=== PATIENT | female | born 1995 | race Caucasian/White ===

== ENCOUNTER 2017-11-19 12:06 | Emergency (ER) | payer MEDICAID, SELFPAY ==
[2017-11-19 12:07] VITALS: BP 130/91; PULSE 99; RESP 16; TEMP 36.8; O2SAT 100; BMI 29.9
--- NOTE | 2017-11-19 12:26 | VDUE_ITS ---
Reason For Study: RUE pain/swelling Right Proximal Right jugular vein is spontaneous, widely patent, phasic, with no intraluminal echogenicity noted. Right subclavian vein is spontaneous, widely patent, phasic, with no intraluminal echogenicity noted. Right Lower Arm Right radial vein is compressible. Right ulnar vein is compressible. Right Arm Right axillary vein is spontaneous, patent, phasic, competent, compressible and demonstrates augmentation. Right brachial vein is compressible. Right cephalic vein is compressible. Right basilic vein is compressible. Antecubital Vein is dilated and non- compressible. < Interpretation Summary Deep veins of the right upper extremity are patent and compressible segmentally. There is no evidence of deep vein thrombosis. Acute superficial thrombophlebitis is noted in the right antecubital vein. The right basilic vein and cephalic vein are patent and compressible. Ordering Physician: Celso Nelson Performed By: Kathrine Baker RVT
[2017-11-19 12:54] LABS: Absolute Lymphocyte Count 1.86 X10^3/ul (0.83-4.51); Basophil# 0.01 X10^3/uL; Basophil% 0.1 % (0-1); Eosinophil# 0.12 X10^3/uL; Eosinophils% 1.3 % (0-5); Hemoglobin 13.3 g/dl (12.0-15.0); Lymphocyte # 1.86 X10^3/ul (4.0); Lymphocyte % 20.6 % (19-41); Mean Corp Hgb Conc 31.7 g/gl (32-36); Mean Corpuscular Hgb 29.8 pg (27.0-32.0); Mean Corpuscular Volume 94.2 fL (81-99); Mean Platelet Vol. 9.6 fl (6.2-12.0); Monocyte# 1.03 X10^3/uL; Monocyte% 11.4 % (0-10); Neutrophil # 5.98 X10^3/uL (2.7-7.7); Neutrophil % 66.5 % (47-70); Platelet Count 269 K/mm3 (150-450); RBC Distribution Width CV 15.1 % (11.6-14.6); Red Blood Count 4.46 M/mm3 (4.2-5.4)
[2017-11-19 12:55] LABS: POSITIVE COUNT NO; POSITIVE DIFFERENTIAL NO; POSITIVE MORPHOLOGY NO
[2017-11-19 13:08] LABS: Anion Gap 8 (5-15); BUN 10 mg/dL (7-18); Calcium,Total 8.7 mg/dL (8.5-10.1); Chloride 103 mmol/L (98-107); Creatinine, Serum 0.67 mg/dL (0.55-1.02); EST Glomerular Filtration Rate 118 mL/min (>60); Est Glom Filt Rate - Afr Amer 143 mL/min (>60); Estimated Creatinine Clearance 119.52 ml/min; Glucose 82 mg/dL (74-106); Potassium 3.3 mmol/L (3.5-5.1); Sodium Level 139 mmol/L (136-145)
[2017-11-19 13:15] LABS: Pregnancy, Serum, hCG Quali. NEGATIVE Negative (0-9 Nonpreg)
[2017-11-19] MEDS: Ondansetron 4 MG/2 ML Vial IV (13:25)
[2017-11-19] MEDS: 0.9% Normal Saline 1,000 ML 1000 ML IV (13:26)
[2017-11-19] MEDS: Ketorolac 30 MG/ML Syringe IV (13:27)
[2017-11-19 13:35] LABS: Lactic Acid 0.9 mmol/L (0.4-2.0)
[2017-11-19] MEDS: DiphenhydrAMINE 50 MG/ML Syringe IV (14:47)
--- NOTE | 2017-11-19 14:57 | ED.VISSUMM ---
- ER Visit Summary Date of Service: 11/19/17 Chief Complaint: Right forearm pain History of Present Illness: The patient is a 22 F with no primary care physician. Patient reports that she uses methamphetamine IV 2-3 times a day. States she has not used for the past week. She reports she has pain and swelling in her right antecubital fossa and right form that began 2 days ago. Is a sharp, throbbing pain is 10 out of 10 at worst and 7 out of 10 currently. Is worsened by movement or lifting. Is relieved by Excedrin. She also complains of subjective fever and chills. Physical Examination: Vitals: Stable. Afebrile. General: Well-nourished and well-developed. Head: Normocephalic atraumatic. Neck: Supple, no lymphadenopathy. No JVD. Nontender. Cardiovascular: Regular rate and rhythm. No murmurs. Respiratory: No respiratory distress. Clear to auscultation bilaterally. Abdominal: Soft, nontender, nondistended, normal bowel sounds. No guarding, rebound, or peritoneal signs. Back: Nontender. Extremities: Palpable vein in the right antecubital fossa. There is minimal erythema distal to this. There is no fluctuance or induration to suggest an abscess. She is neurovascular intact distal to this. Skin: Normal color, no rash. Neurologic: Alert and oriented ?3. Cranial nerves II through XII are intact. Normal strength and sensation. Psych: Normal affect. Test Results: Right upper extremity Doppler shows her to have clot isolated to the right antecubital vein. This is not proximal to this. This is not distal to this. There is no abscess. CBC is marked for monocytes of 11. Chem-7 is marked potassium 3.3. test is negative. Lactic acid is 0.9. Emergency Department Course and Treatment: Patient had an IV placed. She was given vancomycin, Toradol, and morphine IV. He is resting comfortably. Treatment Plan: This is a superficial thrombophlebitis. However, given the way that she got this I suspect that there is going to be some bacterial component of this. She will be discharged on doxycycline and naproxen. She is instructed to use warm compresses to the area. [facility] 2 [facility] for another exam. Return to the emergency department for any worsening symptoms. Disposition: To home in improved and stable condition. Impression: 1. Right antecubital vein thrombophlebitis. 2. IV drug abuse. This note was generated with [employer] dictation software. It may contain incorrect words, spelling, and punctuation that were not noted in review of the chart prior to signing ED Disposition - Plan for ED Patient: Disposition: Home or Assisted Living Chief Complaint: Cellulitis Instructions: ED Phlebitis Superficial Prescriptions: Ondansetron [Zofran Odt] 4 mg PO Q8H PRN PRN #10 tablet PRN Reason: Nausea Naproxen [Naprosyn] 500 mg PO BID PRN #20 tablet Doxycycline Monohydrate 100 mg PO BID #20 capsule Referrals: Katie Tamayo [NON-STAFF] - 5-7 Days
[2017-11-19 15:17] VITALS: BP 127/84; PULSE 75; RESP 16; TEMP 37.2; O2SAT 100
== END 2017-11-19 15:19 | disposition home or self-care (01) ==
PROVIDERS: Emergency Provider Emergency Medicine
DX: I82.811 Embolism and thrombosis of superficial veins of right lower extremity (principal); F17.200 Nicotine dependence, unspecified, uncomplicated; Z86.14 Personal history of Methicillin resistant Staphylococcus aureus infection; F15.20 Other stimulant dependence, uncomplicated
CPT/HCPCS: 80048; 83605; 84703; 85025; 87040; 93971; 96365; 96375; 99283; J7030; J7050; A4216; J2405

== ENCOUNTER 2017-12-29 02:20 | Emergency (ER) | payer SELFPAY ==
[2017-12-29 02:22] VITALS: BP 124/94; PULSE 82; RESP 17; TEMP 36.9; O2SAT 99; BMI 30.1
--- NOTE | 2017-12-29 02:36 | ED.DCSUM_ITS ---
- ER Visit Summary Date of Service: 12/29/17 Chief Complaint: [] Complaining of skin abscesses ?2 History of Present Illness: The patient is a 22 F with skin abscess ?2. The one in her right forearm started 7 days ago after using methamphetamines. She has a history of staph infections. It was opened and drained [place] and she was given Bactrim antibiotics for 5 days. It is getting much better. Is no longer draining. Her right foot developed some redness 5 days ago. It is very faint and sore. She is using Tylenol. Physical Examination: Vital signs reviewed General: Well-nourished well-developed Head: Normocephalic atraumatic Eyes: Pupils equal round and reactive to light extraocular movements intact ENT: TMs clear no hemotympanum no trauma Neck: Nontender full range of motion Cardiovascular: Regular rate rhythm no murmurs normal S1-S2 Respiratory: No distress clear to auscultation bilaterally chest nontender Abdomen: Soft nontender nondistended normal bowel sounds no masses Back: Nontender no CVA tenderness Extremities: Forearm with an old abscess area that is slightly indurated measuring 2 x 2 centimeters. Centrally there is an old Philip spot without drainage. L foot shows a very faint area of erythema on her distal foot just proximal to the second and third toes. It is small not warm and barely red. Neuro alert oriented cranial nerves II through XII intact normal strength sensation reflexes Test Results: [] Emergency Department Course and Treatment: Likely has a mild cellulitis to her Lfoot and her I&D abscess site appears like it is healing. She will be given a short course of Bactrim for the next 7 days as 5 days likely not long enough. Given 1 [place]. Treatment Plan: [] Disposition: [] Impression: [] Healing boil forearm Cellulitis l foot This note was generated with Bebest[employer] dictation software. It may contain incorrect words, spelling, and punctuation that were not noted in review of the chart prior to signing ED Disposition - Plan for ED Patient: Chief Complaint: Abscess Referrals: Care Physician,No Primary [Primary Care Provider] -
--- NOTE | 2017-12-29 02:36 | ED.DEP ---
ED Disposition - Plan for ED Patient: Disposition: Home or Assisted Living Chief Complaint: Abscess Instructions: ED Infec Skin Cellulitis, ED Staph Infec Abx Tx Only Prescriptions: Smz/Tmp Ds [Bactrim Ds] 1 tab PO BID #14 tab Ibuprofen 800 mg PO TID #25 tab Referrals: Care Physician,No Primary [Primary Care Provider] - Katie Tamayo [NON-STAFF] -
[2017-12-29] MEDS: Smz/Tmp Ds Tablet 1 TABLET PO (02:45)
[2017-12-29] MEDS: HYDROcodone Bitartrate/Apap 5/325 Tablet PO (02:45)
[2017-12-29 02:46] VITALS: BP 141/84; PULSE 79; RESP 16; O2SAT 100
== END 2017-12-29 02:46 | disposition home or self-care (01) ==
PROVIDERS: Emergency Provider Emergency Medicine
DX: L02.423 Furuncle of right upper limb (principal); L03.116 Cellulitis of left lower limb; Z86.14 Personal history of Methicillin resistant Staphylococcus aureus infection; F15.90 Other stimulant use, unspecified, uncomplicated
CPT/HCPCS: 99285

== ENCOUNTER 2018-02-07 08:08 | Emergency (ER) | payer MEDICAID, SELFPAY ==
[2018-02-07 08:09] VITALS: BP 155/104; PULSE 110; RESP 20; TEMP 36.4; O2SAT 99; BMI 28.3
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
[2018-02-07] MEDS: Ketorolac 30 MG/ML Syringe IV (08:43)
[2018-02-07 08:49] LABS: Absolute Lymphocyte Count 1.62 X10^3/ul (0.83-4.51); Absolute Neutrophil Count 5.5 X10^3/uL (2.0-7.7); Basophil# 0.03 X10^3/uL; Basophil% 0.4 % (0-1); Eosinophil# 0.05 X10^3/uL; Eosinophils% 0.6 % (0-5); Hematocrit 41.8 % (37-47); Hemoglobin 14.2 g/dl (12.0-15.0); Lymphocyte # 1.62 X10^3/ul (4.0); Lymphocyte % 20.3 % (19-41); Mean Corpuscular Hgb 30.9 pg (27.0-32.0); Mean Corpuscular Volume 90.9 fL (81-99); Mean Platelet Vol. 8.9 fl (6.2-12.0); Monocyte# 0.77 X10^3/uL; Monocyte% 9.7 % (0-10); Neutrophil # 5.49 X10^3/uL (2.7-7.7); Neutrophil % 68.9 % (47-70); Platelet Count 331 K/mm3 (150-450); RBC Distribution Width CV 14.6 % (11.6-14.6); RBC Distribution Width SD 47.7 fl (35.1-43.9)
[2018-02-07 08:52] LABS: POSITIVE COUNT NO; POSITIVE DIFFERENTIAL NO; POSITIVE MORPHOLOGY NO
[2018-02-07 08:57] LABS: Anion Gap 8 (5-15); BUN 15 mg/dL (7-18); BUN/Creat Ratio 20.9 RATIO (10-20); Calcium,Total 9.2 mg/dL (8.5-10.1); Chloride 107 mmol/L (98-107); Creatinine, Serum 0.72 mg/dL (0.55-1.02); EST Glomerular Filtration Rate 108 mL/min (>60); Est Glom Filt Rate - Afr Amer 131 mL/min (>60); Estimated Creatinine Clearance 111.22 ml/min; Glucose 89 mg/dL (74-106); Potassium 3.8 mmol/L (3.5-5.1); Sodium Level 140 mmol/L (136-145)
[2018-02-07 09:22] LABS: Pregnancy, Serum, hCG Quali. NEGATIVE Negative (0-9 Nonpreg)
[2018-02-07 09:51] VITALS: RESP 18
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
[2018-02-07 10:26] LABS: Amphetamine Urine VISTA POSITIVE (<1000 ng/mL); Barbiturate Urine VISTA NEGATIVE (< 200 ng/mL); Benzodiazepine Urine VISTA NEGATIVE (< 200 ng/mL); Cocaine Urine VISTA NEGATIVE (< 300 ng/mL); Ecstacy Urine VISTA POSITIVE (< 500 ng/mL); Methadone Urine VISTA NEGATIVE (< 300 ng/mL); PCP Urine VISTA NEGATIVE (< 25 ng/mL); THC Urine VISTA NEGATIVE (< 50 ng/mL); Vista UDS pH Range 5
[2018-02-07] MEDS: predniSONE 20 MG Tablet 40 MG PO (10:29)
[2018-02-07 10:31] VITALS: BP 180/80; PULSE 99; RESP 18; O2SAT 98
--- NOTE | 2018-02-07 11:15 | CASEMGMT ---
Social Work Note Call from Yanelis stating that they will need the pt to sign a release of information before they can move any further. BAR faxed to SW and pt signed. Copy provided to pt and original faxed to [facility] at [phone]. Zena Velasco, FORKLIFT DRIVER, GREEN CHAIN MARKER
--- NOTE | 2018-02-07 11:26 | ED.RN ---
POLICE STATE THEY HAVE ALREADY TAKEN REPORTS
--- NOTE | 2018-02-07 11:30 | CASEMGMT ---
Social Work Note Yanelis received BAR. Informed that pt was positive for amphetamines and methamphetamines. Pt not positive for alcohol. Per Yanelis they need to know her last use, do not need a TB and do still need a physical (H&P). Yanelis states they can do the TB tomorrow. Pt reports that her last use was Sunday. Does not know what quantity, but states, it was a lot. Relayed information to Yanelis and she states once we have the H&P we can confirm transport. Nursing and physician updated. Zena Velasco, WOOL PRESSER, JUVENILE COURT LIAISON
--- NOTE | 2018-02-07 12:22 | CASEMGMT ---
Social Work Note Call from Yanelis with [facility] stating that she can pick the pt up from the ED and she has setup for a Valuation Consultant to meet with the pt later this afternoon. Updated nursing that pt would be picked up in the next 10-15 minutes. Notified pt of transport as well. Denies further needs. Offer to update her room service associate through Sherrie COEL[facility], and pt provides verbal permission. Placed call to Sherrie Lin and left vm indicating that pt sought treatment and would be going to [facility]. Plan: [facility] for substance abuse treatment. Zena Velasco, OYSTER WASHER, RESIDENTIAL THERAPIST
[2018-02-07 12:27] VITALS: BP 140/80; PULSE 88; RESP 18; O2SAT 98
== END 2018-02-07 12:31 | disposition home or self-care (01) ==
PROVIDERS: Emergency Provider Emergency Medicine
DX: T71.9XXA Asphyxiation due to unspecified cause, initial encounter (principal); Y04.8XXA Assault by other bodily force, initial encounter; Y93.9 Activity, unspecified; Y92.9 Unspecified place or not applicable; Z86.19 Personal history of other infectious and parasitic diseases; F15.90 Other stimulant use, unspecified, uncomplicated; Z90.49 Acquired absence of other specified parts of digestive tract
CPT/HCPCS: 70498; 80048; 80307; 80320; 84703; 85025; 96374; 99282; Q9967; A4216; G0480

== ENCOUNTER 2018-05-14 05:33 | Emergency (ER) | payer MEDICAID, SELFPAY ==
[2018-05-14 05:35] VITALS: BP 146/116; PULSE 132; RESP 20; TEMP 37; O2SAT 100; BMI 28.0
--- NOTE | 2018-05-14 05:38 | ED.VISSUMM ---
- ER Visit Summary Date of Service: 05/14/18 Chief Complaint: [] Overdose with cocaine and methamphetamines History of Present Illness: The patient is a 23 F patient stated she overdosed with cocaine and methamphetamines this evening. She states she has never done this before. She snorted and injected cocaine and methamphetamines earlier this evening. She feels like she cannot calm down. Her muscles are cramping. She feels like she is jumping out of her skin having a toxic reaction. She cannot calm himself down. EMS brought her in for further evaluation and treatment. Patient denies any alcohol use. She stated she was doing this to get high. Physical Examination: [] Vital signs reviewed General: Well-nourished well-developed Head: Normocephalic atraumatic Eyes: Pupils equal round and reactive to light extraocular movements intact ENT: TMs clear no hemotympanum no trauma Neck: Nontender full range of motion Cardiovascular: Regular tachycardia with normal rhythm. No murmurs normal S1-S2 Respiratory: Tachypnea clear to auscultation bilaterally chest nontender Abdomen: Soft nontender nondistended normal bowel sounds no masses Back: Nontender no CVA tenderness Extremities: Nontender active range of motion ?4 extremities no trauma Skin: Normal color no trauma Neuro alert oriented cranial nerves II through XII intact normal strength sensation reflexes Test Results: [] Emergency Department Course and Treatment: [] She given IV fluids Toradol and Ativan. She calm down after treatment. [place] much better afterwards. Did receive a dose of Benadryl for some itching diffusely. No evidence of allergic reaction. At this time she stated she would not do this again. Instructed to try to stay drug-free. Will follow-up as an outpatient Treatment Plan: [] Disposition: [] Impression: [] Polysubstance overdose This note was generated with [employer] dictation software. It may contain incorrect words, spelling, and punctuation that were not noted in review of the chart prior to signing ED Disposition - Plan for ED Patient: Disposition: Home or Assisted Living Chief Complaint: Substance Abuse Instructions: ED Drug Abuse General Referrals: Tam Paulino DO [NON CLINICAL AFFILIATE] - Care Physician,No Primary [Primary Care Provider] -
[2018-05-14] MEDS: 0.9% Normal Saline 1,000 ML 1000 ML IV (05:47)
[2018-05-14] MEDS: Ketorolac 30 MG/ML Syringe IV (05:48)
[2018-05-14] MEDS: LORazepam 2 MG/ML Syringe 1 MG IV (05:48)
[2018-05-14 05:51] VITALS: PULSE 121; RESP 20; O2SAT 100
[2018-05-14 06:10] VITALS: BP 111/89; PULSE 115; RESP 34; O2SAT 100
--- NOTE | 2018-05-14 06:14 | ED.DEP ---
ED Disposition - Plan for ED Patient: Disposition: Home or Assisted Living Chief Complaint: Substance Abuse Instructions: ED Drug Abuse General Referrals: Care Physician,No Primary [Primary Care Provider] - Tam Paulino DO [NON CLINICAL AFFILIATE] -
[2018-05-14] MEDS: DiphenhydrAMINE 50 MG/ML Syringe 25 MG IV (07:15)
[2018-05-14 08:25] VITALS: BP 137/78; PULSE 113; RESP 18; O2SAT 99
== END 2018-05-14 08:27 | disposition home or self-care (01) ==
PROVIDERS: Emergency Provider Emergency Medicine
DX: T40.5X1A Poisoning by cocaine, accidental (unintentional), initial encounter (principal); T43.621A Poisoning by amphetamines, accidental (unintentional), initial encounter; Y92.9 Unspecified place or not applicable; R06.00 Dyspnea, unspecified; R00.2 Palpitations; Z86.14 Personal history of Methicillin resistant Staphylococcus aureus infection
CPT/HCPCS: 99285; J7030; A4216

== ENCOUNTER 2018-09-09 11:38 | Emergency (ER) | payer MEDICAID, SELFPAY ==
[2018-09-09] VITALS (8 sets, daily range): BP systolic 121–156; BP diastolic 55–93; PULSE 42–156; RESP 18–42; TEMP 36.9; O2SAT 96–100; BMI 27.5
[2018-09-09] MEDS: 0.9% Normal Saline 1,000 ML 999 ML IV (11:53)
--- NOTE | 2018-09-09 11:58 | EKG12_ITS ---
Test Reason : Blood Pressure : / mmHG Vent. Rate : 143 BPM Atrial Rate : 143 BPM P-R Int : 130 ms QRS Dur : 088 ms QT Int : 276 ms P-R-T Axes : 075 076 010 degrees QTc Int : 425 ms Sinus tachycardia Nonspecific T wave abnormality Abnormal ECG Confirmed by SHANTEL BRAXTON, ALISON ([id number]), editor sound LUIS HDEZ ([id number]) on 09/12/2018 1:48:10 PM Referred By: JAVY Confirmed By:ALISON FUNES MD
--- NOTE | 2018-09-09 12:20 | RAD_ITS ---
STUDY: X-RAY - ABDOMEN/PELVIS REASON FOR EXAM: Female, 23 years old. Swallowed a golf ball size of meth. Vomiting. TECHNIQUE: AP supine and upright views of the abdomen and pelvis. COMPARISON: None. FINDINGS: Normal visualized lung bases. There is a moderate amount of colonic fecal material. The visualized liver, spleen and kidneys are grossly normal in size and morphology. Normal soft tissue structures. Normal visualized osseous structures. RAD/Abdomen Single View IMPRESSION: Moderate amount of fecal material is seen in the colon. Electronically Signed: Darren Duran MD at 12:46 EST Tel [phone], Service support ,
[2018-09-09] MEDS: LORazepam 2 MG/ML Syringe 1 MG IV ×2 (13:51→15:07)
[2018-09-09] MEDS: Activated Charcoal 50 GM/240 ML BOT PO (13:52)
--- NOTE | 2018-09-09 14:17 | ED.VISSUMM ---
- ER Visit Summary Date of Service: 09/09/18 Chief Complaint: Swallowed a bag of methamphetamines History of Present Illness: The patient is a 23 F who swallowed a bag of methamphetamines. She states it was a size of a golf ball, maybe a little bit less. She did this because she is not allowed to have methamphetamines in the care home. She feels shaky in her legs and ears hurt. States that she does shoot meth every day. She has a history of hepatitis C. Physical Examination: vital signs reviewed. Patient in no distress but is diaphoretic and tremulous. HEENT exam unremarkable. Heart is tachycardic and regular rhythm without murmurs. Lungs are clear to auscultation bilaterally. Abdomen soft and nontender. Skin exam reveals no rashes. She is alert and oriented x3 and answers all questions. Her strength and sensation are equal. She is tremulous. Test Results: KUB reveals no acute findings in the stomach. Emergency Department Course and Treatment: I discussed with poison control and they recommended activated charcoal orally, but they did not recommend putting an NG tube down since she is alert and oriented. I will also give her Ativan to help with her heart rate and to control her tremulousness. Patient did not want to drink the charcoal. However, she was able to keep down a little bit. It has been over 3 hours since the ingestion so I do not feel that it would be effective at this time anyway. The patient will be observed in the emergency department if symptoms improve and then she can be discharged back to care home. She was observed for over 5 hours. She still remained a little bit tachycardic even after doses of Ativan. Her mental status is still normal she still answers questions. I feel she can be safely discharged back to the care home. Treatment Plan: [] Disposition: Discharge Impression: Methamphetamine ingestion This note was generated with [employer] dictation software. It may contain incorrect words, spelling, and punctuation that were not noted in review of the chart prior to signing ED Disposition - Plan for ED Patient: Chief Complaint: Substance Abuse Referrals: Care Physician,No Primary [Primary Care Provider] -
--- NOTE | 2018-09-09 14:20 | ED.DCSUM_ITS ---
- ER Visit Summary Date of Service: 09/09/18 Chief Complaint: Swallowed a bag of methamphetamines History of Present Illness: The patient is a 23 F who swallowed a bag of methamphetamines. She states it was a size of a golf ball, maybe a little bit less. She did this because she is not allowed to have methamphetamines in the nursing home. She feels shaky in her legs and ears hurt. States that she does shoot meth every day. She has a history of hepatitis C. Physical Examination: vital signs reviewed. Patient in no distress but is diaphoretic and tremulous. HEENT exam unremarkable. Heart is tachycardic and regular rhythm without murmurs. Lungs are clear to auscultation bilaterally. Abdomen soft and nontender. Skin exam reveals no rashes. She is alert and oriented x3 and answers all questions. Her strength and sensation are equal. She is tremulous. Test Results: KUB reveals no acute findings in the stomach. Emergency Department Course and Treatment: I discussed with poison control and they recommended activated charcoal orally, but they did not recommend putting an NG tube down since she is alert and oriented. I will also give her Ativan to help with her heart rate and to control her tremulousness. Patient did not want to drink the charcoal. However, she was able to keep down a little bit. It has been over 3 hours since the ingestion so I do not feel that it would be effective at this time anyway. The patient will be observed in the emergency department if symptoms improve and then she can be discharged back to nursing home. She was observed for over 5 hours. She still remained a little bit tachycardic even after doses of Ativan. Her mental status is still normal she still answers questions. I feel she can be safely discharged back to the nursing home. Treatment Plan: [] Disposition: Discharge Impression: Methamphetamine ingestion This note was generated with [employer] dictation software. It may contain incorrect words, spelling, and punctuation that were not noted in review of the chart prior to signing ED Disposition - Plan for ED Patient: Chief Complaint: Substance Abuse Referrals: Care Physician,No Primary [Primary Care Provider] -
--- NOTE | 2018-09-09 14:25 | ED.RN ---
PATIENT TOOK ONE DRINK OF CHARCOAL AND REFUSED TO TAKE ANOTHER. PT REQUESTED TO HAVE NG. PHYSICIAN NOTIFIED AND STATED THAT NG WASN'T NECESSARY AMD TO CONTINUE TO ENCOURAGE DRINKING THE CHARCOAL IN ORDER FOR PT TO FEEL BETTER. RN EXPLAINED THIS TO PATIENT. RN PUT CHARCOAL AND WATER NEAR WHERE SHE WOULD BE ABLE TO REACH DRINKS.
--- NOTE | 2018-09-09 15:07 | ED.RN ---
POISON CONTROL GIVEN AN UPDATE
--- NOTE | 2018-09-09 16:45 | ED.DEP ---
ED Disposition - Plan for ED Patient: Disposition: Home or Assisted Living Chief Complaint: Substance Abuse Instructions: Understanding Methamphetamine Abuse and Addiction Referrals: Care Physician,No Primary [Primary Care Provider] -
[2018-09-09] MEDS: Acetaminophen 500 MG Tablet 1000 MG PO (16:56)
--- NOTE | 2018-09-09 21:19 | ED.RN ---
poison control called and updated of patient condition at this time
== END 2018-09-09 17:08 | disposition home or self-care (01) ==
PROVIDERS: Emergency Provider Emergency Medicine
DX: T43.621A Poisoning by amphetamines, accidental (unintentional), initial encounter (principal); Y92.9 Unspecified place or not applicable; Z86.19 Personal history of other infectious and parasitic diseases
CPT/HCPCS: 74018; 93005; 99284; J7030; A4216

== ENCOUNTER 2019-02-11 12:29 | Emergency (ER) | payer SELFPAY ==
[2018-09-09 11:38] VITALS: BMI 27.5
[2019-02-11 12:30] VITALS: BP 125/72; PULSE 107; RESP 16; TEMP 36.9; O2SAT 97; BMI 29.5
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
[2019-02-11 12:36] VITALS: BP 125/72; PULSE 124; RESP 23; O2SAT 98
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
[2019-02-11] MEDS: Diphth,Pertuss(Acell),Tet Vac 0.5 ML Vial IM (12:51)
[2019-02-11] MEDS: Ondansetron 4 MG/2 ML Vial IV (12:51)
[2019-02-11 12:58] LABS: Absolute Lymphocyte Count 2.58 X10^3/ul (0.83-4.51); Absolute Neutrophil Count 4.5 X10^3/uL (2.0-7.7); Basophil# 0.02 X10^3/uL; Basophil% 0.3 % (0-1); Eosinophil# 0.09 X10^3/uL; Eosinophils% 1.1 % (0-5); Hematocrit 42.7 % (37-47); Hemoglobin 14.2 g/dl (12.0-15.0); Lymphocyte # 2.58 X10^3/ul (4.0); Lymphocyte % 32.7 % (19-41); Mean Corp Hgb Conc 33.3 g/gl (32-36); Mean Corpuscular Volume 93.2 fL (81-99); Monocyte# 0.73 X10^3/uL; Monocyte% 9.2 % (0-10); Neutrophil # 4.47 X10^3/uL (2.7-7.7); Neutrophil % 56.6 % (47-70); Platelet Count 326 K/mm3 (150-450); RBC Distribution Width CV 12.8 % (11.6-14.6); RBC Distribution Width SD 42.4 fl (35.1-43.9); Red Blood Count 4.58 M/mm3 (4.2-5.4); White Blood Count 7.9 K/mm3 (4.4-11.0)
[2019-02-11 12:59] LABS: POSITIVE COUNT NO; POSITIVE DIFFERENTIAL NO; POSITIVE MORPHOLOGY NO
[2019-02-11 13:10] LABS: International Normalized Ratio 0.9; Partial Thromboplast Time 30.6 Seconds (24.1-36.2); Prothrombin Time (Protime)PT. 12.2 SECONDS (11.7-14.9)
[2019-02-11 13:17] LABS: AST(SGOT) 23 U/L (15-37); Alanine Aminotransfer ALT/SGPT 46 U/L (13-56); Albumin, Serum 3.8 g/dL (3.2-5.0); Alkaline Phosphatase 60 U/L (45-117); Anion Gap 6 (5-15); BUN 12 mg/dL (7-18); BUN/Creat Ratio 15.8 RATIO (10-20); Bilirubin, Direct 0.11 mg/dL (0.00-0.30); Chloride 106 mmol/L (98-107); Creatinine, Serum 0.76 mg/dL (0.55-1.02); EST Glomerular Filtration Rate 101 mL/min (>60); Est Glom Filt Rate - Afr Amer 122 mL/min (>60); Estimated Creatinine Clearance 108.69 ml/min; Globulin 3.8 g/dL (2.2-4.2); Glucose 94 mg/dL (74-106); Potassium 3.7 mmol/L (3.5-5.1); Protein, Total 7.6 g/dL (6.4-8.2); Sodium Level 140 mmol/L (136-145)
[2019-02-11 13:17] LABS: Amphetamine Urine VISTA POSITIVE (<1000 ng/mL); Barbiturate Urine VISTA NEGATIVE (< 200 ng/mL); Benzodiazepine Urine VISTA NEGATIVE (< 200 ng/mL); Cocaine Urine VISTA NEGATIVE (< 300 ng/mL); Ecstacy Urine VISTA POSITIVE (< 500 ng/mL); Methadone Urine VISTA NEGATIVE (< 300 ng/mL); PCP Urine VISTA NEGATIVE (< 25 ng/mL); THC Urine VISTA NEGATIVE (< 50 ng/mL); Vista UDS pH Range 5
[2019-02-11 13:20] LABS: Internal QC Validated? YES +Cl - CLEAR BKGD; Pregnancy, Serum, hCG Quali. NEGATIVE Negative
[2019-02-11 13:32] VITALS: BP 140/97; PULSE 87; RESP 18; O2SAT 99
[2019-02-11 14:24] VITALS: BP 127/77; PULSE 96; RESP 10; O2SAT 99
[2019-02-11 15:40] VITALS: BP 135/80; PULSE 95; RESP 18; O2SAT 99
[2019-02-11 16:10] VITALS: BP 125/79; PULSE 88; PULSE 98; RESP 16; RESP 18; O2SAT 97; O2SAT 99
[2019-02-11] MEDS: Acetaminophen 500 MG Tablet 1000 MG PO (16:17)
== END 2019-02-11 16:40 ==
PROVIDERS: Emergency Provider Emergency Medicine
DX: S09.90XA Unspecified injury of head, initial encounter (principal); S39.91XA Unspecified injury of abdomen, initial encounter; V89.2XXA Person injured in unspecified motor-vehicle accident, traffic, initial encounter; Y92.410 Unspecified street and highway as the place of occurrence of the external cause; R09.02 Hypoxemia; B19.20 Unspecified viral hepatitis C without hepatic coma; F11.20 Opioid dependence, uncomplicated; F15.20 Other stimulant dependence, uncomplicated; Z87.891 Personal history of nicotine dependence; Z88.0 Allergy status to penicillin; Z90.49 Acquired absence of other specified parts of digestive tract; Z23 Encounter for immunization
CPT/HCPCS: 70450; 71045; 72125; 74177; 80048; 80076; 80307; 80320; 84703; 85025; 85610; 85730; 90471; 90715; 93005; 96374; 96375; 99285; Q9967; A4216; G0480; J2310; J2405

== ENCOUNTER 2020-11-12 03:08 | Emergency (ER) | payer SELFPAY ==
[2020-11-12 03:09] VITALS: BP 148/108; PULSE 110; RESP 18; TEMP 36.5; O2SAT 100; BMI 32.7
--- NOTE | 2020-11-12 03:14 | ED.DCSUM_ITS ---
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 Patient admits to injecting heroin tonight. Friend called EMS because she was apneic. On EMS arrival, she had pinpoint pupils and was breathing 4 times a minute. She was given 2 doses of intranasal Narcan. Patient became awake and alert. She does admit that this was accidental. She is complaining of nausea and abdominal cramping. She denies any other substance use at this time. Prior similar symptoms: Yes Recent Illness/Hospitalization: No Past Medical History - Allergies and Home Meds Allergies/Adverse Reactions: Allergies amoxicillin [Amoxicillin] Allergy (Verified 11/12/20 03:12) Anaphylaxis Primary Care Physician: Care Physician,No Primary [Primary Care Provider] - Prior records reviewed: Yes Past Medical History: - - Hepatitis Surgical History: cholecystectomy Smoking Status: Former smoker Drugs: Heroin - Family History Paternal Family History: Reports: No pertinent history Maternal Family History: Reports: No pertinent history Review of Systems General: Denies: Chills, Fever, Sweats Eyes: Denies: Visual changes - bilaterally, Diplopia ENT: Denies: Rhinorrhea, Sore throat Cardiovascular: Denies: Chest pain, Palpitations Respiratory: Denies: Dyspnea, Cough, Dyspnea on exertion Gastrointestinal: Reports: Nausea. Denies: Abdominal pain, Vomiting, Diarrhea, Melena, Hematochezia Genitourinary: Denies: Dysuria, Hematuria, Frequency Musculoskeletal: Denies: Back pain, Extremity Pain Skin: Denies: Rash, Wounds Neurological: Denies: Headache, Weakness, Numbness Physical Exam Vital Signs/Narrative: Vital Signs Temp Pulse Resp BP Pulse Ox 11/12/20 03:09 97.7 F L 110 H 18 148/108 H 100 Inital Vital Signs reviewed: Yes General: Well nourished, Well developed, No Acute Distress Head: Normocephalic, Atraumatic Eyes: Perrl, EOMI ENT: Moist mucous membranes, No rhinorrhea Neck: Supple, Nontender Cardiovascular: Regular rate, Regular rhythm, No murmurs Respiratory: No distress, CTA bilaterally, Chest nontender Abdomen: Soft, Nontender, Nondistended, Normal bowel sounds Back: Nontender, Normal Inspection Extremities: Nontender, No edema, - - Patient has multiple track garay on the left arm. No evidence of abscess. Skin: Normal color, No rash Neurological: Alert, Oriented x3, Cranial nerves II-XII grossly intact, Normal Strength, Normal Sensation Psychological: Normal affect, Normal Mood Diagnostic/Tx/Re-eval - Medical Decision Making The patient was observed for over an hour. Her tachycardia has resolved. She has not been tachypneic or hypoxic. She states her symptoms remarkably improved with Zofran. She was complaining of sore throat and states she is had it for about 3 days. She denies fever. She does have evidence of exudative tonsillitis. The patient does have penicillin allergy. She will be treated with Decadron and azithromycin. She is given her first dose here. At this point, I do for the patient is safe for discharge. She is comfortable with this plan. Impression 1. Accidental heroin overdose 2. Exudative pharyngitis ED Disposition - Plan for ED Patient: Instructions: ED Overdose, Opiate Prescriptions: Azithromycin [Zithromax] 250 mg PO DAILY #4 tab Prescription Printed Referrals: Care Physician,No Primary [Primary Care Provider] -
[2020-11-12] MEDS: Ondansetron ODT 4 MG Tablet PO (03:23)
[2020-11-12 03:39] VITALS: BP 115/86; PULSE 110; RESP 14; O2SAT 98
[2020-11-12] MEDS: dexAMETHasone 10 MG/ML Vial PO.IVFORM (04:09)
[2020-11-12] MEDS: Azithromycin 250 MG Tablet 500 MG PO (04:10)
[2020-11-12 04:11] VITALS: BP 119/84; PULSE 108; RESP 18; O2SAT 99
== END 2020-11-12 04:13 ==
PROVIDERS: Emergency Provider Emergency Medicine
DX: T40.1X1A Poisoning by heroin, accidental (unintentional), initial encounter (principal); J02.9 Acute pharyngitis, unspecified; R06.81 Apnea, not elsewhere classified; Z87.891 Personal history of nicotine dependence; Z88.0 Allergy status to penicillin; Z90.49 Acquired absence of other specified parts of digestive tract
CPT/HCPCS: 99285

== ENCOUNTER 2023-12-04 15:05 | Outpatient (CLI) | payer SELFPAY ==
[2023-12-04 15:48] VITALS: BMI 39.1
[2023-12-04 15:50] VITALS: BP 131/85; PULSE 91
[2023-12-04 16:10] LABS: Hemoglobin 12.3 g/dL (12.0-15.0); Mean Corp Hgb Conc 33.2 g/dL (32-36); Mean Corpuscular Volume 93.2 fL (81-99); Mean Platelet Vol. 9.3 fl (6.2-12.0); Platelet Count 291 K/mm3 (150-450); RBC Distribution Width SD 44.2 fl (35.1-43.9); Red Blood Count 3.97 M/mm3 (4.2-5.4); White Blood Count 9.9 K/mm3 (4.4-11.0)
[2023-12-04 16:23] LABS: AST(SGOT) 13 U/L (15-37); Alanine Aminotransfer ALT/SGPT 13 U/L (13-56); Creatinine, Serum 0.51 mg/dL (0.55-1.02); EST Glomerular Filtration Rate 152 mL/min (>60); Est Glom Filt Rate - Afr Amer 184 mL/min (>60); Uric Acid 4.4 mg/dL (2.6-6.0)
[2023-12-04 16:24] LABS: Protein:Creat Ratio 116 mg/g CRE (0-200)
[2023-12-04 17:24] LABS: Mucous, Urine 0 SEEN /hpf (<or=2+); Red Blood Cells-Urine 0 SEEN /hpf (0-5)
[2023-12-04 17:26] LABS: Color, Urine Yellow (Yellow); Glucose, Dipstick Normal (Normal); Ketone-Dipstick 5 mg/dl (Negative); Leukocyte Esterase-Dipstick 25 /ul (Negative); Nitrite-Dipstick Negative (Negative); Occult Blood-Urine Negative /ul (Negative); Protein-Dipstick 15 mg/dl (Negative); Urine Bilirubin Dipstick Negative (Negative); Urine Clarity Clear (Clear); Urine Urobilinogen 1 mg/dl (Normal)
[2023-12-04] MEDS: 0.9 % NaCl (Sterile) Posiflush 10 mL IV ×2 (17:30→17:33)
[2023-12-04] MEDS: Lactated Ringers 1,000 ML 999 ML IV (17:32)
[2023-12-04] MEDS: Metoclopramide 10 MG/2 ML Vial IV (17:33)
[2023-12-04] MEDS: DiphenhydrAMINE 50 MG/ML Syringe 25 MG IV (17:33)
[2023-12-04 17:34] LABS: Squamous Epithelial Cells - UA 0-5 SEEN /hpf (5-10)
[2023-12-04 17:35] LABS: Bacteria 2+ /hpf (None Seen); Calcium Oxalate Crystals Ur 1+ /hpf (<or=2+); White Blood Cells 0-5 SEEN /hpf (0-5)
--- NOTE | 2023-12-11 14:01 | OB.TRI.NOTE ---
HPI - General HPI Narrative RAUDEL DOHERTY, is a 28 F who presents 28w3d with headache. Seen in office for headache that had been present for 6 days and RUQ abdominal pain. No visual changes. Assessment in office only positive for mild RUQ abdominal pain that radiates to back. PFSH PFSH Home Medications vit no.95-ferrous fumarate 28 mg-folic acid 800 mcg tablet () 1 tab PO DAILY 12/04/23 [History Last Taken 12/03/23 17:00 1 TAB] Allergy/AdvReac Type Severity Reaction Status Date / Time amoxicillin [Amoxicillin] Allergy Anaphylaxis Verified 12/04/23 15:47 Social History Smoking Status: Never smoker History Elective abortions Hx Para 2 Spontaneous abortions Hx # Term Pregnancies Ectopic pregnancies Hx # Pregnancies Multiple births # of living children NST FHR Rate Baby B Baseline: 145 Variability:: Moderate Accelerations:: 15 x 15 Decelerations:: None NST Reactive:: Yes Uterine Activity:: Irritability Assessment & Plan (1) Headache: (2) 28 weeks gestation of : (3) RUQ abdominal pain: PLAN: Plan 1) Labs negative for preeclampsia 2) Headache resolved with IV fluids, Benadryl,and Reglan. 3) RUQ pain decreased and mild 4) D/C home, follow up outpatient
== END 2023-12-04 18:50 | disposition home or self-care (01) ==
LOC: WPOUT 15:10 → WP 15:10
PROVIDERS: Visit Provider Advanced Practice Midwife
DX: O99.891 Other specified diseases and conditions complicating pregnancy (principal); R51.9 Headache, unspecified; Z3A.28 28 weeks gestation of pregnancy; R10.11 Right upper quadrant pain
CPT/HCPCS: 96374; 96361; 36415; 59025; 59050; 81001; 82565; 82570; 84156; 84450; 84460; 84550; 85027; 87086; 87088; 99221; J7120; G0378

== ENCOUNTER 2024-01-19 23:33 | Outpatient (CLI) | payer SELFPAY ==
[2024-01-19 23:53] VITALS: PULSE 101; O2SAT 99
[2024-01-19 23:55] VITALS: BP 141/86; PULSE 95
[2024-01-20] VITALS: BMI 41.6
[2024-01-20 00:06] VITALS: BP 133/75; PULSE 92
[2024-01-20] MEDS: Mag Hydrox/Al Hydrox/Simeth 30 ML UDC PO (00:30)
[2024-01-20 01:33] LABS: Color, Urine Yellow (Yellow); Glucose, Dipstick Normal (Normal); Ketone-Dipstick Negative (Negative); Leukocyte Esterase-Dipstick 100 /ul (Negative); Nitrite-Dipstick Negative (Negative); Occult Blood-Urine Negative /ul (Negative); Protein-Dipstick 30 mg/dl (Negative); Specific Gravity, Urine 1.015 (1.002-1.030); Urine Bilirubin Dipstick Negative (Negative); Urine Clarity Clear (Clear); Urine Urobilinogen 4 mg/dl (Normal); Urine pH 6.5 (5.0 - 8.0)
--- NOTE | 2024-01-20 17:12 | OB.TRI.NOTE ---
HPI - General General Date of Admission: 01/19/24 Date of Service: 01/19/24 Chief Complaint: Low back pain and nausea/vomiting HPI Narrative RAUDEL DOHERTY, is a 28 F who presents lower back pain. Nausea and vomiting. Unsure about contractions. Maternal Data Information Final CHRISTOPHER: 02/23/24 Gestational age: 35+1 PFSH PFSH Home Medications vit no.95-ferrous fumarate 28 mg-folic acid 800 mcg tablet () 1 tab PO DAILY 12/04/23 [History Last Taken 01/19/24] Allergy/AdvReac Type Severity Reaction Status Date / Time amoxicillin [Amoxicillin] Allergy Anaphylaxis Verified 01/19/24 23:59 Social History Smoking Status: Never smoker History Elective abortions Hx Para 2 Spontaneous abortions Hx # Term Pregnancies Ectopic pregnancies Hx # Pregnancies Multiple births # of living children NST FHR Rate Baby A Baseline: 135 Variability:: Moderate Accelerations:: 15 x 15 Decelerations:: None NST Reactive:: Yes FHR Category:: Category I Uterine Activity:: quiet Assessment & Plan (1) 35 weeks gestation of : PLAN: Nausea/heart burn improved with MOM. Not laboring (2) Back pain affecting :
== END 2024-01-20 02:01 | disposition home or self-care (01) ==
LOC: WPOUT 23:40 → WP 23:40
PROVIDERS: Referring Provider Obstetrics & Gynecology; Visit Provider Obstetrics & Gynecology
DX: O99.891 Other specified diseases and conditions complicating pregnancy (principal); M54.50 Low back pain, unspecified; Z3A.35 35 weeks gestation of pregnancy
CPT/HCPCS: 59025; 59050; 81002; 99221; G0378

== ENCOUNTER 2024-02-18 07:10 | Inpatient (IN) | payer MEDICAID, SELFPAY ==
[2024-02-18] VITALS (92 sets, daily range): BP systolic 88–159; BP diastolic 44–85; PULSE 51–133; RESP 16–20; TEMP 36.2–37.7; O2SAT 90–100; BMI 41.8
--- NOTE | 2024-02-18 07:36 | HP.PCM.OB_ITS ---
HPI - General General Date of Admission: 02/18/24 Date of Service: 02/18/24 Chief Complaint: elective IOL HPI Narrative RAUDEL DOHERTY, is a 28 F who presents for a scheduled elective induction of labor. She offers no complaints. [facility] Medical History (Updated 02/18/24 @ 07:43 by Hillary Nettles) Hepatitis depression Depression Anxiety Home Medications ?Medication ?Instructions ?Recorded ?Last Taken ?Type vit no.95-ferrous 1 tab PO DAILY 12/04/23 01/19/24 History fumarate 28 mg-folic acid 800 mcg tablet () Allergy/AdvReac Type Severity Reaction Status Date / Time amoxicillin (Amoxicillin) Allergy Anaphylaxis Verified 01/19/24 23:59 Social History Smoking Status: Never smoker History Elective abortions Hx Para 2 Spontaneous abortions Hx # Term Pregnancies Ectopic pregnancies Hx # Pregnancies Multiple births # of living children Addt'l History: 39 wk 36 w 1 d NST FHR Rate Baby A Baseline: 140 Variability:: Moderate Accelerations:: 15 x 15 Decelerations:: None NST Reactive:: Yes FHR Category:: Category I Uterine Activity:: no contractions Vital Signs Vital Signs Vital Signs: 02/18/24 07:27 02/18/24 07:27 Pulse Rate 99 Blood Pressure 132/79 H BP Systolic 132 BP Diastolic 79 Weight Weight: 255 lb Body Mass Index (BMI) 41.8 Physical Exam Const alert and no apparent distress General Appearance: comfortable HEENT normocephalic Resp normal respiratory effort GI non-tender Narrative: /50/-2, vertex Labs Labs Labs: Blood Type A POSITIVE Antibody Screen NEGATIVE Hct 37.0 % (37-47) Hgb 12.3 g/dL (12.0-15.0) Obstetrics Ultrasound Rubella IgG Antibody 25.2 IU/mL Hep Bs Antigen Negative (Negative) Hepatitis C Ab (EIA) >11.0 s/co ratio (0.0-0.9) H HCV RNA Qual (PCR) Positive (Negative) H Glucose 1 Hr 50 gm 157 mg/dL (70-140) H Gest Glucose Tolerance MG/DL Group B Strep DNA Negative (Negative) Rhogam given: No Assessment & Plan (1) 39 weeks gestation of : PLAN: Patient requested elective IOL and consent signed after discussion of r/b/a. Intracervical rolon placed in usual sterile fashion and filled with 30 cc saline. Routine intrapartum care. GBS negative. Pitocin per protocol. Plans on epidural for pain control. Pelvis adequate and EFW < 4500 grams. (2) History of hepatitis C: PLAN: GI consult placed in LFT's normal with 28 wk labs HCV RNA 08/01/2023: 6,850,000 (3) History of tobacco use: PLAN: Quit during (4) Bipolar disorder: PLAN: Prior Zoloft use 180 for counseling Behavioral health consult placed during (5) Anxiety: (6) History of drug use: PLAN: UDS negative on 01/17/24 History of meth, heroin, and fentanyl use (7) Obesity affecting : PLAN: Pre BMI 35
[2024-02-18] MEDS: 0.9% Normal Saline Single 100 ML IV.SOLN. INTRA-UTER (08:03)
[2024-02-18] MEDS: Lactated Ringers 1,000 ML 50 ML IV (08:04)
[2024-02-18] MEDS: Oxytocin 15 Units/NS 250ml 15 UNITS/250 ML IV.SOLN 2 UNITS IV (08:27)
[2024-02-18 08:36] LABS: Absolute Lymphocyte Count 1.62 X10^3/uL (0.83-4.51); Absolute Neutrophil Count 7.5 X10^3/uL (2.0-7.7); Basophil# 0.03 X10^3/uL; Basophil% 0.3 % (0-1); Eosinophil# 0.13 X10^3/uL; Eosinophils% 1.2 % (0-5); Hematocrit 34.2 % (37-47); Hemoglobin 10.7 g/dL (12.0-15.0); Lymphocyte # 1.62 X10^3/ul (0.83-4.51); Lymphocyte % 15.3 % (19-41); Mean Corp Hgb Conc 31.3 g/dL (32-36); Mean Corpuscular Hgb 27.6 pg (27.0-32.0); Mean Corpuscular Volume 88.1 fL (81-99); Mean Platelet Vol. 10.2 fl (6.2-12.0); Monocyte# 1.09 X10^3/uL; Monocyte% 10.3 % (0-10); NRBC Flagged by Analyzer 0 % (0-5); Neutrophil # 7.51 X10^3/uL (2.7-7.7); Platelet Count 345 K/mm3 (150-450); RBC Distribution Width CV 14.6 % (11.6-14.6); RBC Distribution Width SD 46.9 fl (35.1-43.9); Red Blood Count 3.88 M/mm3 (4.2-5.4); White Blood Count 10.6 K/mm3 (4.4-11.0)
[2024-02-18 09:20] LABS: Syphilis Antibodies Non-reactive
[2024-02-18] MEDS: Lactated Ringers 1,000 ML 999 ML IV (09:40)
[2024-02-18 10:46] LABS: Amphetamine Urine VISTA NEGATIVE (<1000 ng/mL); Barbiturate Urine VISTA NEGATIVE (< 200 ng/mL); Benzodiazepine Urine VISTA NEGATIVE (< 200 ng/mL); Cocaine Urine VISTA NEGATIVE (< 300 ng/mL); Ecstacy Urine VISTA NEGATIVE (< 500 ng/mL); Methadone Urine VISTA NEGATIVE (< 300 ng/mL); PCP Urine VISTA NEGATIVE (< 25 ng/mL); THC Urine VISTA NEGATIVE (< 50 ng/mL); Vista UDS pH Range 6
[2024-02-18] MEDS: fentaNYL-bupivacaine (epidural) 100 ML BAG EPIDURAL (10:50)
--- NOTE | 2024-02-18 12:48 | PCM.PN.BLA ---
Progress Note pt doing well. comfortable with epidural. offers no complaints. Assessment & Plan Assessment/Plan (1) Obesity affecting : (2) History of drug use: (3) Anxiety: (4) Bipolar disorder: (5) History of tobacco use: (6) History of hepatitis C: (7) 39 weeks gestation of : PLAN: Cvx /-2, vertex and head well applied. AROM performed in usual fashion with return of minimal clear fluid.
[2024-02-18] MEDS: Lactated Ringers 1,000 ML 200 ML IV ×2 (13:46→20:07)
[2024-02-18] MEDS: LACTATED RINGERS 500 ML 999 ML IV (18:20)
--- NOTE | 2024-02-18 21:43 | PCM.OPRPT ---
Problems Associated Problem List Diagnoses (1) Obesity affecting : (2) History of drug use: (3) Anxiety: (4) Bipolar disorder: (5) History of tobacco use: (6) History of hepatitis C: (7) 39 weeks gestation of : (8) Elective induction of labor planned: Report of Operation Date of Procedure: 02/18/24 Pre-Operative Diagnosis: 39 week gestation, obesity, history of drug use, hepatitis c, elective IOL Post-Operative Diagnosis: as above Surgery/Procedure Performed:: Description of Surgical Findings:: VFI in DILIP position. Normal appearing placenta with 3 VC Surgeon: Estefania Lozano swimming professor: None Type of Anesthesia: Epidural Special Medications: None Specimen's removed: Placenta Drains: Sorto Estimated Blood Loss (mL): 100 Fluids Replaced: N/A Description of Procedure: Patient prepped once complete and pushing. The head was delivered in left occiput anterior position. The anterior shoulder was delivered with gentle downward traction, followed by the posterior shoulder and body of the infant without any excessive traction, force, or delay. A vigorous viable female infant was placed on maternal abdomen and the cord was clamped and cut after a 60 second delay. The placenta delivered spontaneously and was noted to be normal appearing and intact with a 3VC. Fundus was firm and bleeding hemostatic. No lacerations were noted. Sponge counts were correct and a vaginal sweep performed. Grafts/Implants Used: None Complications None Admit VTE Documentation VTE Present on Admission: No
[2024-02-18] MEDS: Oxytocin 15 Units/NS 250ml 15 UNITS/250 ML IV.SOLN 334 UNITS IV (21:50)
[2024-02-18] MEDS: Oxytocin 15 Units/NS 250ml 15 UNITS/250 ML IV.SOLN 83 UNITS IV (22:07)
[2024-02-19 04:01] VITALS: BP 120/77; PULSE 101; RESP 18; TEMP 36.8
[2024-02-19 05:56] LABS: Absolute Lymphocyte Count 1.48 X10^3/uL (0.83-4.51); Absolute Neutrophil Count 9.3 X10^3/uL (2.0-7.7); Basophil# 0.03 X10^3/uL; Basophil% 0.2 % (0-1); Eosinophil# 0.07 X10^3/uL; Eosinophils% 0.6 % (0-5); Hematocrit 31.4 % (37-47); Hemoglobin 9.9 g/dL (12.0-15.0); Lymphocyte # 1.48 X10^3/ul (0.83-4.51); Mean Corp Hgb Conc 31.5 g/dL (32-36); Mean Corpuscular Hgb 28.1 pg (27.0-32.0); Mean Corpuscular Volume 89.2 fL (81-99); Mean Platelet Vol. 9.7 fl (6.2-12.0); Monocyte# 1.28 X10^3/uL; Monocyte% 10.4 % (0-10); NRBC Flagged by Analyzer 0 % (0-5); Neutrophil # 9.31 X10^3/uL (2.7-7.7); Neutrophil % 75.5 % (47-70); Platelet Count 302 K/mm3 (150-450); RBC Distribution Width CV 14.6 % (11.6-14.6); RBC Distribution Width SD 47.2 fl (35.1-43.9); Red Blood Count 3.52 M/mm3 (4.2-5.4); White Blood Count 12.3 K/mm3 (4.4-11.0)
[2024-02-19 07:54] VITALS: BP 125/84; PULSE 104; RESP 16; TEMP 36.4; O2SAT 97
[2024-02-19] MEDS: Acetaminophen 500 MG Tablet 1000 MG PO ×2 (08:02→16:17)
[2024-02-19] MEDS: Ibuprofen 600 MG Tablet PO (11:07)
--- NOTE | 2024-02-19 12:54 | PCM.PN.OB ---
Subjective Subjective Denies complaints Objective Data Objective Data Vital Signs: Vital Signs Temp Pulse Resp BP Pulse Ox O2 Del Method 97.6 F L 104 H 16 125/84 H 97 Room Air 02/19/24 07:54 02/19/24 07:54 02/19/24 07:54 02/19/24 07:54 02/19/24 07:54 02/19/24 07:54 Oxygen Delivery Method Room Air Weight: 255 lb Body Mass Index (BMI) 41.8 Intake & Output: Intake and Output for Last 24 Hours 02/17/24 02/18/24 02/19/24 23:59 23:59 23:59 Intake Total 4134.63 / 4134.63 250 / 250 Output Total 2400 / 2400 600 / 600 Balance 1734.63 / 1734.63 -350 / -350 Lab / Micro Data 02/19/24 05:40 Labs: Laboratory Results - last 24 hr 02/19/24 05:40: WBC 12.3 H, RBC 3.52 L, Hgb 9.9 L, Hct 31.4 L, MCV 89.2, MCH 28.1, MCHC 31.5 L, RDW Std Deviation 47.2 H, RDW Coeff of Ivana 14.6, Plt Count 302, MPV 9.7, Immature Gran % (Auto) 1.300 H, Neut % (Auto) 75.5 H, Lymph % (Auto) 12.0 L, [place] % (Auto) 10.4 H, Eos % (Auto) 0.6, Baso % (Auto) 0.2, Absolute Neuts (auto) 9.3 H, Absolute Lymphs (auto) 1.48, Nucleated RBC % 0 Physical Exam Const alert, oriented x3 and no apparent distress HEENT normocephalic GI soft to palpation, non-tender and non-distended GI Narrative: fundus firm, mid & below umbilicus Extremity normal to inspection and no calf tenderness Assessment & Plan (1) Elective induction of labor planned: COMMENT: PPD#1 (2) Obesity affecting : QUALIFIERS: Trimester: third trimester Obesity type affecting : unspecified obesity Qualified Code(s): O99.213 - Obesity complicating , third trimester PLAN: Plan ROutine care
[2024-02-19 13:10] VITALS: BP 137/86; PULSE 90; RESP 16; TEMP 36.2; O2SAT 98
[2024-02-19 16:00] VITALS: BP 130/87; PULSE 81; RESP 16; TEMP 36.6; O2SAT 98
[2024-02-19] MEDS: cycloBENZAPRine HCl 10 MG Tablet PO (17:47)
[2024-02-19 22:00] VITALS: BP 136/88; PULSE 86; RESP 16
[2024-02-20] MEDS: cycloBENZAPRine HCl 10 MG Tablet PO (03:52)
[2024-02-20 03:53] VITALS: BP 138/87; PULSE 90; RESP 16; TEMP 36.6
[2024-02-20 08:30] VITALS: BP 119/61; PULSE 100; RESP 15; TEMP 36.8; O2SAT 100
--- NOTE | 2024-02-20 08:36 | PCM.PN.OB ---
Subjective Subjective Feels good. Back pain better. Minimal bleeding. Breast and bottle feeding. Objective Data Objective Data Vital Signs: Vital Signs Temp Pulse Resp BP Pulse Ox O2 Del Method 97.8 F 90 16 138/87 H 98 Room Air 02/20/24 03:53 02/20/24 03:53 02/20/24 03:53 02/20/24 03:53 02/19/24 16:00 02/20/24 03:53 Oxygen Delivery Method Room Air Weight: 115.666 kg Body Mass Index (BMI) 41.8 Intake & Output: Intake and Output for Last 24 Hours 02/18/24 02/19/24 02/20/24 23:59 23:59 23:59 Intake Total 4134.63 / 4134.63 250 / 250 Output Total 2400 / 2400 600 / 600 Balance 1734.63 / 1734.63 -350 / -350 Lab / Micro Data 02/19/24 05:40 Physical Exam Const alert and no apparent distress Narrative: Fundus firm, below umbilicus. Assessment & Plan (1) Elective induction of labor planned: COMMENT: PPD#1 (2) Obesity affecting : QUALIFIERS: Trimester: third trimester Obesity type affecting : unspecified obesity Qualified Code(s): O99.213 - Obesity complicating , third trimester (3) History of drug use: (4) Anxiety: (5) Bipolar disorder: QUALIFIERS: Active/Remission status: remission status unspecified Qualified Code(s): F31.9 - Bipolar disorder, unspecified (6) History of hepatitis C: PLAN: Plan Discharge home
--- NOTE | 2024-02-20 08:38 | DS.PCM_ITS ---
Providers Date of Admission: 02/18/24 Date of Discharge: 02/20/24 Primary Care Physician: Dian Primary Care Phys Reason For Visit: VAG Diagnosis Discharge Diagnosis (1) Elective induction of labor planned: Status: Acute (2) Obesity affecting : Status: Acute Code(s): O99.210 - Obesity complicating , unspecified trimester Qualifiers: Trimester: third trimester Obesity type affecting : u nspecified obesity Qualified Code(s): O99.213 - Obesity complicating , third trimester (3) History of drug use: Status: Acute Code(s): F19.91 - Other psychoactive substance use, unspecified, in remission (4) Anxiety: Status: Acute Code(s): F41.9 - Anxiety disorder, unspecified (5) Bipolar disorder: Status: Acute Code(s): F31.9 - Bipolar disorder, unspecified Qualifiers: Active/Remission status: remission status unspecified Qualified Code(s): F31.9 - Bipolar disorder, unspecified (6) History of hepatitis C: Status: Acute Code(s): Z86.19 - Personal history of other infectious and parasitic diseases Plan Discharge home Medications at Discharge Home Medications vit no.95-ferrous fumarate 28 mg-folic acid 800 mcg tablet () 1 tab PO DAILY 12/04/23 Hospital Course Operations None Procedures None Summary of Care Provided Minutes Spent on Discharge: 22 Physical Exam Const alert and no apparent distress Narrative: Fundus firm, below umbilicus. Weight / BMI Weight Weight: 115.666 kg Body Mass Index (BMI) 41.8 ABG / Lab / Microbiology Data 02/19/24 05:40 D/C Instructions May resume sexual activity in: 6 weeks Please Follow Up With: Leda Loza MD When: Follow up with our office in 1-2 and 6 weeks or as needed. [phone] Meaningful Use Info Meaningful Use Meaningful Use Diagnoses (Choose all that apply): None applicable Ischemic Stroke Statin Dosing Therapy Reference: STATIN DOSE THERAPY REFERENCE: * Patients > 75 years receive moderate or high dose statin therapy. * Patients 75 years or YOUNGER should receive HIGH intensity statin dose unless contraindicated. You will be required to document reason for non-treatment if statin daily dose does not meet guidelines. HIGH DOSE STATIN THERAPY DAILY Atorvastatin > than or = to 40 mg Rosuvastatin > than or = to 20 mg Amlodipine + Atorvastatin > than or = to 2.5/40 mg Ezetimibe + Simvastatin 10/80 mg Simvastatin 80mg Discharge Plan Admission Admit Date/Time: 02/18/24 07:10 Primary Reason for Your Visit: Labor and delivery Attending Provider: Estefania Lozano Primary Care Provider: Care Physician,Dian Primary Discharge Orders/Prescriptions Prescriptions: Continued PNV cmb#95-ferrous fumarate-FA [] 28 mg iron- 800 mcg tablet 1 tab PO DAILY Referrals / Follow Up: Care Physician,No Primary [Primary Care Provider] - Disposition Disposition (needs filled in before D/C Order can be placed): Home, Self Care
--- NOTE | 2024-02-20 12:22 | CASEMGMT ---
Social Work Assessment Labor and Delivery Unit Patient Address: [address] [place] [id number] Phone number: [phone] Date of Referral: 02/19/24 Time of Referral:? 54 Referred By: Estefania Lozano Date of Intervention: ??02/19/24 Time of Intervention:? 1300 Reason for Referral:? anxiety, bipolar, depression, hx drug use Sw completed chart review, as well as chart review of some other MOB's other children. Sw acknowledges social work consult for mental health concerns and maternal history of drug use. Sw presented to bedside and introduced self to mother of baby (SANTIAGO- Ayanna). Sw explained reason for sw involvement and completed psychosocial assessment. History obtained from: medical records, MOB Household composition: MOB states that currently residing in the family home is MICKEY HENDERSON, MICKEY's older daughter (Luis Antonio Galvan) and now baby once ready for discharge. MOB denies any issues or concerns with their current housing. Patient's parent/guardian status:? ?MOB states that she and MICKEY have been together for three years after meeting on Facebook. MOB denies any issues or concerns with domestic violence or intimate partner violence. This baby is first baby for parents together. Medical History: ?SANTIAGO is 5, para 3- now 5 following labor and delivery of . SANTIAGO received care during with [facility]. SANTIAGO presented to hospital on 02/18/24 for an elective induction of labor and delivered baby via vaginal delivery at 39 weeks gestation. Baby girl, named Eva Sherwood, was born weighing 8lb 8oz with apgars of 8 and 9 at one and five minutes of life respectfully. SANTIAGO is providing breast milk for baby. Baby will be followed by Dr. Palm for pediatrics. Educational Status:? MOB states that both parents have completed some college. No issues reported with reading, learning or comprehension Financial Status: SANTIAGO is unemployed at this time. MICKEY works for a [employer] in [place] Infant Supplies:?? MOB reports to obtaining all necessary baby supplies for baby, including: car seat, safe sleep space, clothes, diapers and wipes. Childcare/Caregiver(s):? MOB reports that she is going to be the primary adult live in caregiver to baby, along with FOB when he is not working. Transportation:??MOB states that she and MICKEY do not have their drivers license, but have family members who help them get where they need to go when needed. Programs/Agencies Involved: ?SANTIAGO reports to being connected to resources through [employer] (insurance) and is connected to WIC. SANTIAGO reports that she is also connected to mental health and treatment services provided by [facility]. SANTIAGO states that she is also getting connected to behavioral health services at [facility] services for assessment of medication management. SANTIAGO also received some baby items provided by [employer]. ?? Children Services/Legal Issues:?SANTIAGO has extensive history with Children Services, resulting in the removal and loss of custody of her other three children. SANTIAGO's two sons reside with an aunt in [place]. SANTIAGO reports that her daughter was also removed from her care and placed in a foster family who has formally adopted her since that time. ??SANTIAGO states that the foster parents who adopted her daughter have since then reached out to her and offered to have an open adoption so that SANTIAGO is able to still see and talk to her daughter. SANTIAGO states that the family who her children are currently residing with have done the same, however SANTIAGO does not want to disrupt anything that may be going well for any of her children. - MOB also informed winsome that MICKEY is currently on house arrest for bryan theft. - Winsome informed SANTIAGO that sw is going to make a referral to [facility] due to maternal history of children services involvement, history of addiction/ substance use and current legal involvement of MICKEY. - SANTIAGO understandably became tearful when hearing this, but also expressed understanding. Behavioral Health Issues: ??Mental Health History: SANTIAGO has been diagnosed with depression, anxiety, depression and BiPolar. SANTIAGO states that she has taken zoloft in the past to help manage her mental health symptoms but is not prescribed any thing at this time. SANTIAGO states that she was referred to [facility] by her OBGYN for pharmacological assistance to help treat her mental health. MOB states that MICKEY does not have any mental health diagnoses. Substance Use History:?SANTIAGO has significant substance use history, including meth, and opiates. SANTIAGO denies any substance use during this . ?SANTIAGO states that her last time of use was in 2019 or 2020. Family History:???SANTIAGO reports that there are many people in her family that have a problem with drug use. MOB states that she has chosen not to associate with them. ?? Drug Screens: MOB and baby urine screens were negative on admission, baby meconium is still pending. Family/Social Stressors:? MOB denies any issues, concerns or stressors at this time. However when discussing need to make referral to [facility] MOB became understandably upset, but expressed understanding and willingness to talk with them. Support Systems: MOB states that MICKEY and his brother and grandma are their biggest supports at this time. Depression/Shaken Baby/Safe Sleeping:? Sw educated MOB at length regarding signs and symptoms of baby blues and depression. MOB expressed understanding. MOB states that she did experience in the past, however at that time her life was in disarray and she is in a much better place at this time. MOB states that if she were to struggle with symptoms FOB would be able to recognize that she is struggling and would know how to help and support her. Sw educated MOB on shaken baby prevention and ABCs of safe sleep. MOB expressed understanding. ASSESSMENT:? MOB and baby admitted following labor and delivery of . MOB with significant mental health and substance use history, ultimately resulting in the loss of custody of her three other children. SANTIAGO has worked on her mental health and substance use disorder and is now connected to appropriate services and supports. MOB reports to having all necessary baby supplies and adequate natural supports in place. MOB upset initially regarding need for Children Services referral, but then expressed understanding and willingness to meet with welfare case worker. Children Services reported to bedside and met with MOB- who then stated that it was okay for MOB and baby to be discharged together. . PLAN:? MOB and baby to be discharged when medically ready. Children Services will continue to work with family and meet with them at home post discharge. ?No other services requested or indicated. Marie Price, STRATEGIC PLANNING SPECIALIST, RAILWAY SIGNAL TECHNICIAN
[2024-02-20 12:44] VITALS: BP 138/84; PULSE 89; RESP 17; TEMP 36.8; O2SAT 98
--- NOTE | 2024-02-20 12:48 | NURSING ---
pt very emotional, crying regarding children services pending visit. emotional support given
== END 2024-02-20 15:10 | disposition home or self-care (01) | DRG 560 ==
PROVIDERS: Admitting Provider Obstetrics & Gynecology; Referring Provider Obstetrics & Gynecology; Visit Provider Obstetrics & Gynecology
DX: O99.214 Obesity complicating childbirth (principal); Z37.0 Single live birth; Z3A.39 39 weeks gestation of pregnancy; Z87.891 Personal history of nicotine dependence
CPT/HCPCS: 80307; 85025; 86780; 86850; 86900; 86901; 99221; J7120; G0378

== ENCOUNTER 2024-05-08 10:18 | Day surgery (SDC) | payer MEDICAID, SELFPAY ==
[2024-05-08] VITALS (9 sets, daily range): BP systolic 127–145; BP diastolic 79–92; PULSE 67–80; RESP 16–18; TEMP 36.1–36.7; O2SAT 97–100; BMI 39.9
[2024-05-08] MEDS: Lactated Ringers 1,000 ML 15 ML IV ×2 (11:30→14:32)
[2024-05-08 11:39] LABS: Hematocrit 40.2 % (37-47); Hemoglobin 12.8 g/dL (12.0-15.0); Mean Corp Hgb Conc 31.8 g/dL (32-36); Mean Corpuscular Hgb 27.8 pg (27.0-32.0); Mean Corpuscular Volume 87.4 fL (81-99); Mean Platelet Vol. 9.1 fl (6.2-12.0); Platelet Count 369 K/mm3 (150-450); RBC Distribution Width CV 15.8 % (11.6-14.6); RBC Distribution Width SD 50.4 fl (35.1-43.9); White Blood Count 6.4 K/mm3 (4.4-11.0)
[2024-05-08 11:40] LABS: Internal QC Validated? YES +Cl - CLEAR BKGD; Pregnancy, Urine Negative Negative
[2024-05-08 11:48] LABS: AST(SGOT) 68 U/L (15-37); Alanine Aminotransfer ALT/SGPT 118 U/L (13-56); Albumin, Serum 3.5 g/dL (3.2-5.0); Alkaline Phosphatase 102 U/L (45-117); Bilirubin, Direct 0.22 mg/dL (0.00-0.30); Globulin 3.4 g/dL (2.2-4.2); Protein, Total 6.9 g/dL (6.4-8.2)
--- NOTE | 2024-05-08 12:13 | PCM.PRE.AN2 ---
ASA Classification* ASA Classification ASA Classification: 3 Assessment & Plan Anesthesia* Anesthesia Assessment Anesthesia Assessment: Discussed sedation and/or anesthesia options, risks, benefits, and alternatives with patient/parents/legal guardian/POA. Questions invited. The patient/parents/legal guardian/POA seems to understand and agrees to proceed with anesthesia plan. Reviewed the physical assessment, medical history, allergy history and patient home medications list prior to surgery/procedure/anesthetic and documented any changes. Performed airway and anesthesia risk assessments. Anesthesia Type Anesthesia Type: General History Source History Obtained from:: Patient and Chart Anesthesia Focused Assessment* Temperature: 98.1 F Pulse Rate: 72 Blood Pressure: 127/79 Respiratory Rate: 16 Pulse Ox: 98 Oxygen Delivery Method: Room Air Airway Assessment Mouth opens: >3 cm Mallampati Score: I Teeth Condition: Intact (Multiple chipped teeth. Several missing teeth. All current teeth are tight.) Neck Range of motion (ROM): Full ROM Pertinent Findings EKG Pertinent Findings:: January 25, 2021 normal sinus rhythm. Nonspecific T wave abnormalities. Focused Labs Anesthesia Preop lab: CBC WBC 6.4 K/mm3 (4.4-11.0) 05/08/24 11:21 RBC 4.60 M/mm3 (4.2-5.4) 05/08/24 11:21 Hgb 12.8 g/dL (12.0-15.0) 05/08/24 11:21 Hct 40.2 % (37-47) 05/08/24 11:21 Plt Count 369 K/mm3 (150-450) 05/08/24 11:21 CHEMISTRY Potassium 3.8 mmol/L (3.5-5.1) 01/25/21 09:45 Sodium 141 mmol/L (136-145) 01/25/21 09:45 BUN 20 mg/dL (7-18) H 01/25/21 09:45 Creatinine 0.51 mg/dL (0.55-1.02) L 12/04/23 15:58 Glucose 86 mg/dL (74-106) 01/25/21 09:45 POC Glucose 95 mg/dL (70-110) 03/02/17 10:19 TSH 0.80 uIU/mL (0.358-3.74) 01/01/17 10:38 COAG PT 12.2 SECONDS (11.7-14.9) 02/11/19 12:45 HCG, Quant 50955 mIU/mL (<9 non-preg) H 12/04/16 15:30 Urine Test Negative Negative 05/08/24 11:21 Pre-Assessment Diagnosis/Proposed Procedure Planned Operative Procedure(s): LAP BILAT SALPINGECTOMY LILETTA IUD INSERTION Anesthesia History Anesthesia History - distance learning technician: Anesthesia History - distance learning technician Hx Hospitalization No 05/06/24 13:33 Any Problems With Anesthesia No 05/06/24 13:33 Cholinesterase deficiency No 05/06/24 13:33 You/Your Family Experience No 05/06/24 13:33 fever (hyperthermia) with Relationship Recent Exposure to Contagious No 05/08/24 11:18 Disease Does patient have nerve No 05/06/24 13:33 stimulator Patient instructed to have device shut off --Does patient have Pacemaker No 05/08/24 11:13 or ICD? When Was Last Pacemaker Check QUESTION #4 FULL TEXT: You/Your Family Experience fever (hyperthermia) with Anesthesia Last Oral Intake Last Oral intake: Last Oral Intake NPO since 20:00 05/08/24 11:13 Meds taken in AM with sips of Yes 05/08/24 11:13 water? Meds patient instructed to take am of surgery PONV PONV - distance learning technician: PONV - distance learning technician Female Yes 05/06/24 13:33 HX of Motion Sickness No 05/06/24 13:33 HX of N/V After Surgery No 05/06/24 13:33 Non-Smoker No 05/06/24 13:33 Duration of Surgery greater No 05/06/24 13:33 than 60 minutes Number of Risk Factors 1 05/06/24 13:33 PONV Score Low Risk 05/06/24 13:33 Height & Weight Height & Weight: Anesthesia: Height & Weight Height 5 ft 5 in 05/08/24 11:13 Weight: 109 kg 05/08/24 11:13 Body Mass Index (BMI) 39.9 05/08/24 11:13 Respiratory Assessment Respiratory Assessment - distance learning technician: Respiratory Tract Infection Hx - distance learning technician Hx Respiratory Tract Infection No 05/06/24 13:33 STOP Sleep Apnea STOP Sleep Apnea - distance learning technician: STOP Sleep Apnea - distance learning technician Hx Hypertension No 05/06/24 13:33 Hx Sleep Apnea No 05/06/24 13:33 CPAP No 12/14/16 17:18 BIPAP No 12/14/16 17:18 Do you snore loudly (louder No 05/06/24 13:33 than talking or can be heard Do you often feel tired/ No 05/06/24 13:33 fatigued/ sleepy during daytime? Has anyone observed you stop No 05/06/24 13:33 breathing during sleep? STOP Results Negative 05/06/24 13:33 QUESTION #5 FULL TEXT : Do you snore loudly (louder than talking or can be heard through closed doors)? Tobacco Use History Tobacco Use History - distance learning technician: Tobacco Use History - distance learning technician Tobacco Use Cigarettes 01/25/21 09:49 Smoking Status Current every day smoker 05/06/24 13:33 Hx Tobacco Use Yes: cigarettes vaping 05/06/24 13:33 Years Smoking Packs Smoked per Day Smoking Cessation Date was within the last 15 years Hx Smoking Cessation Date Hx Smoking Cessation Counseling Any additional information?: Yes Smoking Status: Current every day smoker (Patient smoked today.) Hematologic Medial History Hematologic Hx - distance learning technician: Hematologic Medical Hx - director clinical research Hx of Blood Transfusion No 05/06/24 13:33 Hx of Transfusion in last 3 No 05/06/24 13:33 Months Date of Last Transfusion (if within last 3 months) Ever experience any problems No 05/06/24 13:33 with transfusion(s)? Specify any problems Hx of Preganancy in last 3 Yes 05/06/24 13:33 Months Nurse Filling Out Transfusion DSCHRIBER 05/06/24 13:33 & Questions: Date: 05/06/24 05/06/24 13:33 Time: 13:34 05/06/24 13:33 Patient unable to answer at this time (ie. confused, unrespo /Reproduction History /Reproductive History - distance learning technician: /Reproductive Hx- distance learning technician Hx Now No 05/06/24 13:33 Gestational Age (in weeks): EDC: Hx Hx Para Hx Section SAB No 05/06/24 13:33 Active Medications Active Medications: Current Medications Generic Name Dose Route Start Last Admin Trade Name Freq PRN Reason Stop Dose Admin Lactated Ringer's 1,000 mls @ 15 mls/hr 05/08/24 10:30 05/08/24 11:30 IV 15 mls/hr .Q48H KOLTON Administration PFSH Medical History (Updated 05/06/24 @ 13:38 by Sherrie Snow) Wears glasses Substance abuse Back pain History of IBS Smoker Shortness of breath on exertion Hepatitis depression Depression Anxiety Home Medications ?Medication ?Instructions ?Recorded ?Last Taken ?Type fluoxetine 40 mg capsule 40 mg PO DAILY 05/06/24 05/08/24 11:12 History quetiapine 25 mg tablet 25 mg PO QHS 05/06/24 Unknown History Allergy/AdvReac Type Severity Reaction Status Date / Time amoxicillin (Amoxicillin) Allergy Anaphylaxis Verified 05/08/24 11:12 Surgical History (Updated 05/06/24 @ 13:38 by Sherrie Snow) Hx of surgical procedure Hx laparoscopic cholecystectomy Social History Smoking Status: Current every day smoker tobacco type: cigarettes Review of Systems (Anesthesia) ROS Narrative System reviewed and no additional complaints, except as documented.
--- NOTE | 2024-05-08 13:10 | FALS_PTH ---
PATIENT: RAUDEL DOHERTY LOC: [facility] [place] U#:[id number] AGE/SX: 29/F ROOM: RE05/08/[address]: Dr. Estefania Lozano DO : 1995 BED: DIS: 05/08/2024 SPEC #: [id number] RECD: 05/08/24 14:26 STATUS: MILANA REAshli #: [id number] REA: 05/08/24 13:[address]: Estefania Lozano DEPT: SURGICAL PATHOLOGY RECD BY: Zuleyka Mas ENTERED: 05/09/24 07:19 SP TYPE: FALL TUBES OTHR DR: No Primary Care Phys Tissues: Fallopian tube Procedures: Surgery Specimen Level II HEADER OPERATION: Laparoscopic bilateral salpingectomy PRE-OP DIAGNOSIS: Request for sterilization TISSUE SUBMITTED: Bilateral fallopian tubes MICROSCOPIC DIAGNOSIS Bilateral fallopian tubes, salpingectomy: Bilateral fallopian tubes, no pathologic diagnosis. SJ: 05/13/2024 MICROSCOPIC DESCRIPTION Slides are reviewed. GROSS DESCRIPTION Received in fixative is one container labeled with the patient's name and designated bilateral fallopian tubes. The specimen consists of bilateral fallopian tubes including fimbrial ends measuring 6.0 cm in length and 0.6 cm in diameter and 8.0cm in length and 1.0cm in diameter. The fallopian tubes are not identified as right or left. Sections reveal unremarkable cut surfaces. Building Maintenance Technician sections are submitted in two cassettes with each cassette containing one fallopian tube. / DIVINA: 05/09/2024 TC:4 CPT: 35728 x2
[2024-05-08] MEDS: Levonorgestrel IUD (Liletta) 1 EACH INTRA-UTER (13:51)
[2024-05-08] MEDS: Bupivacaine Mpf 0.5% 30 ML VIAL (14:00)
--- NOTE | 2024-05-08 14:08 | PCM.DC ---
Discharge Instructions Diet Discharge Diet: No restrictions Activity Discharge Activity: May Drive (once you are more than 24 hours out from surgery) and May Shower (once you are more than 24 hours out from surgery) May resume sexual activity in: 1-2 weeks (nothing in the vagina and no soaking in water) Ice area for (Minutes): 15 Weight Bearing Status: Weight bearing as tolerated Lifting Restrictions: nothing greater than 20 pounds for 1 week Dressing / Incision Call your doctor if your incision/area has: Continuous Slow Oozing, Sudden Increased Bleeding, Increased Pain/ Swelling, Increased Redness, Foul Smelling Discharge and Swelling at the incision site Call your doctor if you observe: Fever of 101 or Higher, Coldness, Increased Pain, Numbness or Tingling, Change in Color, Inability to urinate, Inability to have a bowel movement, Using more than 1 pad per hour, Shortness of breath, Dizziness, Fainting spells, Swelling in the ankles, Chest pain, Prolonged hiccupping, Increased palpitations (irregular heartbeat), Calf discomfort and Uncontrolled pain Suture Line Care: Avoid Pulling/Pushing and Avoid Pinching/Bending Remove Dressing in: leave until fall off (There are sutures under your skin that will dissolve in 6 weeks. The glue over your skin will start to peel up, and you can peel it off if it is bothersome) Cleanse incision/area with: Soap & Water Follow Up Care Please Follow Up With: Estefania Lozano DO When: 1-2 weeks post op visit Test Results: Test results from this visit will be discussed in further detail at your follow-up appointment, if applicable. Discharge Plan Admission Primary Reason for Your Visit: surgery Attending Provider: Estefania Lozano Primary Care Provider: Care PhysicianDian Primary Instructions Print Language: Chadian Discharge Orders/Prescriptions Prescriptions: New ibuprofen 600 mg tablet 600 mg PO Q6H PRN (Reason: pain) Qty: 30 0RF Continued fluoxetine 40 mg capsule 40 mg PO DAILY quetiapine 25 mg tablet 25 mg PO QHS Referrals / Follow Up: Care PhysicianDian Primary [Primary Care Provider] - Disposition Disposition (needs filled in before D/C Order can be placed): Home, Self Care
--- NOTE | 2024-05-08 14:11 | PCM.OPRPT ---
Problems Associated Problem List Diagnoses (1) Request for sterilization: Report of Operation Date of Procedure: 05/08/24 Pre-Operative Diagnosis: Request for sterilization Post-Operative Diagnosis: Request for sterilization Surgery/Procedure Performed:: Laparoscopic bilateral salpingectomy Lilleta IUD insertion Description of Surgical Findings:: Uterus sounded to 8.5 cm with minimal descent of uterus and cervix. Normal appearing uterus and bilateral adnexa. Normal appearing pelvis. Surgeon: Estefania Lozano pharmacist's aide: Tonya SELBY Type of Anesthesia: General Special Medications: Liletta IUD Specimen's removed: Bilateral fallopian tubes Drains: None Estimated Blood Loss (mL): < 20 Fluids Replaced: 900 mL Description of Procedure: The patient was taken to the operating room where general anesthesia was induced. She was prepped and draped in the dorsal lithotomy position using yellow fin stirrups. A weighted speculum was placed in the vagina to expose the cervix. The anterior lip of the cervix was grasped with a single tooth tenaculum. A uterine manipulator was placed. The tenaculum and weighted speculum were removed. Gloves were changed and attention was turned to the abdominal portion of the procedure. Local was infiltrated at all port sites. A 5 mm infraumbilical incision was made to accommodate a 5 mm port. This port was placed under direct visualization using the laparoscope. Once confirmed intraperitoneal, CO2 insufflation was initiated and no injury was noted upon entry. The patient was placed in Trendelenburg position. A right lateral 5 mm port was placed. A left lateral 5 mm port was placed. The uterus was upheld from below. A normal-appearing pelvis was noted. The left fallopian tube was followed to the fimbriated end. Using the LigaSure device, the left mesosalpinx was cauterized, and transected along the mesosalpinx hugging adjacent to the fallopian tube. Once at the level of the cornua the fallopian tube was transected and removed. The same was performed along the right. The right fallopian tube was followed out to the fimbriated end. The LigaSure device was used to serially clamp, cauterize, and transect along mesosalpinx hugging adjacent to the fallopian tube until reaching level of the cornua. Once at the level of the cornua the fallopian tube was transected and removed. Bilateral fallopian tubes were sent to pathology for review. Hemostasis was confirmed. Ports were removed under direct visualization and hemostasis was again noted. The abdomen was exsufflated. The port sites were closed with 4 Monocryl and glue by Tonya SELBY, as I was present in the room and inserting IUD. A weighted speculum was placed in the vagina and the cervix was exposed. The anterior lip of the cervix was grasped with single-tooth tenaculum. Uterus sounded to 8 and half centimeters. The Liletta IUD was inserted in usual sterile fashion in the uterus. The IUD strings were cut to 3 cm. All instruments were removed from the vagina. No bleeding was noted. A vaginal sweep was performed. Instrument, sharp, sponge counts were correct and the patient was taken to the recovery in stable condition. Tonya SELBY was present for the entire case and assisted with draping the patient, removing the fallopian tubes, and closure. Grafts/Implants Used: None Procedure Start Time: 13:40 Procedure Stop Time: 14:08 Complications None Admit VTE Documentation VTE Present on Admission: No VTE Mechan Device Prophylaxis: SCD's
--- NOTE | 2024-05-08 14:19 | PCM.POST.ANE ---
Anesthesia: Postop Eval I Current Vital Signs Temperature: 97.2 F Pulse Rate: 80 Blood Pressure: 142/92 Respiratory Rate: 18 Pulse Ox: 97 Oxygen Delivery Method: Room Air Assessment Airway patent: Yes Spontaneous unlabored respirations: Yes Mental status: Awake and Calm nausea: No Vomiting: No Anesthesia Complication: No Fluid Hydration Crystalloid volume administer (ml): 900 Total IV fluid infused: 900 Progress Note Anesthesia document: Postop Eval 1 completed: Yes
--- NOTE | 2024-05-08 16:19 | POSTOPAN2_ITS ---
Anesthesia Postop Eval I Sum Postop Eval Completion status Anesthesia document: Postop Eval 1 completed: Yes Anesthesia Postop Eval I Summary Anesthesia Postop Eval I Summary: Anesthesia Postop Eval I: Assessment Summary Airway patent Yes 05/08/24 14:19 [email or web address] Spontaneous unlabored Yes 05/08/24 14:19 [email or web address].SCHR respirations Mental status Awake,Calm 05/08/24 14:19 RINKMAN.SCHR nausea No 05/08/24 14:19 RINKMAN.SCHR Vomiting No 05/08/24 14:19 RINKMAN.SCHR Anesthesia Postop Eval I: Fluid Summary Crystalloid volume administer 900 05/08/24 14:19 [email or web address].SCHR (ml) Colloids volume administered ( ml) Blood Product volume administered (ml) Total IV fluid infused 900 05/08/24 14:19 [email or web address] Anesthesia Postop Eval I: Summary Notes Anesthesia Complication No 05/08/24 14:19 RINKMAN.SCHR Anesthesia Complication Comment: Post-operative progress note Anesthesia: Postop Eval II Evaluation Mental status: Awake Pain Level: 0 nausea: No Vomiting: No
--- NOTE | 2024-05-08 16:19 | PCM.POSTANE2 ---
Anesthesia Postop Eval I Sum Postop Eval Completion status Anesthesia document: Postop Eval 1 completed: Yes Anesthesia Postop Eval I Summary Anesthesia Postop Eval I Summary: Anesthesia Postop Eval I: Assessment Summary Airway patent Yes 05/08/24 14:19 [employer]SCHR Spontaneous unlabored Yes 05/08/24 14:19 [employer]SCHR respirations Mental status Awake,Calm 05/08/24 14:19 [employer]SCHR nausea No 05/08/24 14:19 [employer]SCHR Vomiting No 05/08/24 14:19 [employer]SCHR Anesthesia Postop Eval I: Fluid Summary Crystalloid volume administer 900 05/08/24 14:19 [employer].SCHR (ml) Colloids volume administered ( ml) Blood Product volume administered (ml) Total IV fluid infused 900 05/08/24 14:19 [employer]SCHR Anesthesia Postop Eval I: Summary Notes Anesthesia Complication No 05/08/24 14:19 [employer]SCHR Anesthesia Complication Comment: Post-operative progress note Anesthesia: Postop Eval II Evaluation Mental status: Awake Pain Level: 0 nausea: No Vomiting: No
== END 2024-05-08 15:35 | disposition home or self-care (01) ==
LOC: SDC 10:21 → AC 10:23
PROVIDERS: Anesthesiology; Referring Provider Obstetrics & Gynecology; Visit Provider Obstetrics & Gynecology
PROC: (CPT 58661; principal; 2024-05-08 12:55)
DX: Z30.2 Encounter for sterilization (principal); E66.01 Morbid (severe) obesity due to excess calories; Z68.41 Body mass index [BMI] 40.0-44.9, adult; Z90.49 Acquired absence of other specified parts of digestive tract; F17.210 Nicotine dependence, cigarettes, uncomplicated
CPT/HCPCS: 58300; 58661; 58301; 00840; 80076; 81025; 85027; 88302; J7120; J2405

== ENCOUNTER 2025-05-28 11:41 | Emergency (ER) | payer MEDICAID, SELFPAY ==
[2025-05-28 11:42] VITALS: BP 132/84; PULSE 60; RESP 14; TEMP 36.6; O2SAT 98; BMI 41.1
== END 2025-05-28 14:35 | disposition left against medical advice (07) ==
LOC: ED 14:40
DX: R51.9 Headache, unspecified (principal)